=== PATIENT | female | born 1990 | race Hispanic/Latino ===

== ENCOUNTER → 2017-03-19 | Day surgery (SDC) | payer OTHER ==
--- NOTE | 2017-03-18 19:37 | History & Physical Pre-Op ---
General Information and HPI History of Present Illness: This patient is a 26-year-old 1 para 1 LMP 1 month ago who desires removal of IUD. IUD was noted to be impacted in the office setting and is admitted today for outpatient surgery for dilatation and curettage and IUD removal. Allergies/Medications Allergies: Coded Allergies: No Known Allergies (03/18/17) Home Med list Docusate Sodium 100 MG CAPSULE 100 MG PO BID PRN STOOL SOFTENER Ferrous Sulfate (Iron Supplement) 325 MG TABLET 1 TAB PO DAILY ANEMIA ( Reported) Ibuprofen 800 MG TABLET 800 MG PO Q6P PRN PAIN SCALE 4-6 Methylprednisolone. (Medrol) 4 MG TAB.DS.PK 1 DP PO AD INFLAMMATION 6 on day 1 then reduce by one tablet daily until gone Past History Surgical History Pertinent Surgical History: CLEFT PALLET REPAIR Review of Systems Review of Systems Constitutional: Reports: no symptoms. EENTM: Reports: no symptoms. Cardiovascular: Reports: no symptoms. Respiratory: Reports: no symptoms. GI: Reports: no symptoms. Genitourinary: Reports: no symptoms. Musculoskeletal: Reports: no symptoms. Skin: Reports: no symptoms. Neurological/Psychological: Reports: no symptoms. Hematologic/Endocrine: Reports: no symptoms. Immunologic/Allergic: Reports: no symptoms. All Other Systems: Reviewed and Negative Exam & Diagnostic Data Last 24 Hrs of Vital Signs/I&O Intake & Output 03/18 1600 03/18 0800 03/18 0000 Intake Total Output Total Balance Patient 132 lb Weight Physical Exam: HEENT: Normocephalic atraumatic Chest: Clear to auscultation bilaterally Cardiovascular: Normal S1, S2 Abdomen: Soft nontender no masses nondistended Pelvic: Deferred to the OR Extremities: No clubbing cyanosis or edema Neurologic: Nonfocal Assessment/Plan Assessment/Plan: Impacted IUD Plan: D&C hysteroscopy removal of impacted IUD As Ranked By This Provider Problem List: 1. Malpositioned intrauterine device (IUD)
[~2017-03-19] VITALS: Ht 157.5 cm; Wt 59.9 kg
[~2017-03-19] MED LIST: DOCUSATE SODIU100 M3 PO; IBUPROFEN800 M1 PO; IRON SUPPLEMEN325 MG PO; MEDROL4 M2 PO; PRENATAL1 TA2 PO; UNISOM25 MG PO; ZOFRAN4 M1 SL
--- NOTE | 2017-03-20 14:06 | Operative Report ---
Operative/Inv Procedure Report Surgery Date: 03/19/17 Name of Procedure: D&C hysteroscopy removal of impacted IUD Pre-Operative Diagnosis: Impacted IUD Post-Operative Diagnosis: Same Estimated Blood Loss: scant Surgeon/Civil Engineer: Jose Montemayor MD Anesthesia: moderate sedation Operative/Procedure Note Note: The patient was brought to the operating room placed on the OR table in the dorsal supine position. She was given adequate anesthesia and repositioned in a modified dorsal lithotomy. She was prepped and draped in usual sterile fashion. A weighted speculum was inserted and to the vagina with help of a Nohemi retractor single-tooth tenaculum was attached to the anterior lip of the cervix. Cervix was injected with 1% lidocaine and epinephrine in each quadrant to have cc. An endocervical curettage is performed. The uterus is then sounded and the IUD was palpable. The cervix was dilated to accommodate the hysteroscope hysteroscope was placed into the endocervical canal and the saline was activated. The hysteroscope was advanced to the uterus and the IUD was noted to be twisted and its position with the strings retracted and coiled. The hysteroscope was then removed and the cervix was further dilated. Polyp forceps were used to insert grasp the IUD and removed intact. This was sent to pathology. An endometrial curettage was then performed. At the end of the procedure the instruments removed patient was awakened and sent to recovery in good condition. All needle, sponge, and instrument counts were correct at the end of procedure 2.
== END ==
LOC: STS 04:24
DX: T83.32XA Displacement of intrauterine contraceptive device, initial encounter (principal); N71.9 Inflammatory disease of uterus, unspecified; F17.200 Nicotine dependence, unspecified, uncomplicated
CPT/HCPCS: 81025; J2250

== ENCOUNTER 2017-07-14 15:17 | Emergency (ER) | payer OTHER ==
[~2017-07-14] VITALS: Ht 157.5 cm; Wt 59.9 kg
--- NOTE | 2017-07-14 16:03 | ED GI/GU/ABDOMINAL COMPLAINT ---
History of Present Illness General Chief Complaint: Female Urogenital Problems Stated Complaint: 8 WEEKS PREG, BLEEDING Source: patient Exam Limitations: no limitations Vital Signs & Intake/Output Vital Signs & Intake/Output Vital Signs Date Time Temp Pulse Resp B/P B/P Pulse O2 O2 Flow FiO2 Mean Ox Delivery Rate 07/14 1823 98.5 88 18 124/68 98 Room Air Room Air 07/14 1643 98.7 82 18 113/64 99 Room Air 07/14 1521 98.0 116 20 134/74 98 Room Air Allergies Coded Allergies: No Known Allergies (03/18/17) Reconcile Medications Docusate Sodium 100 MG CAPSULE 100 MG PO BID PRN STOOL SOFTENER Ferrous Sulfate (Iron Supplement) 325 MG TABLET 1 TAB PO DAILY ANEMIA ( Reported) Ibuprofen 800 MG TABLET 800 MG PO Q6P PRN PAIN SCALE 4-6 Methylprednisolone. (Medrol) 4 MG TAB.DS.PK 1 DP PO AD INFLAMMATION 6 on day 1 then reduce by one tablet daily until gone Triage Note: PT TO ED C/O VAGINAL BLEEDING X 40 MINS. PT IS ABOUT 8 WEEKS , HAS NOT SEEN OBGYN. . YET. OBGYN IS DR GARCIA. . SPOKE WITH CBC, OK TO KEEP PT IN ED. Triage Nurses Notes Reviewed? yes ? y Is pt currently ? No Onset: Abrupt Duration: better Timing: single episode today Quality/Severity: sharpness, stabbing Severity Numbers: 8 Location: suprapubic Radiation: no radiation Activities at Onset: none Prior Abdominal Problems: none No Modifying Factors: none Associated Symptoms: denies HPI: 27-year-old female presents to the ER for evaluation status post developing bright red vaginal bleeding and suprapubic abdominal pain 8 out of 10 sharp stabbing intermittent in nature and nonradiating for the past one hour. She believes she is approximately 8 weeks she was called earlier today by her ict managers Dr. scott was informed she is . She believes her last menstrual cycle was June 07. The bleeding started after she had spoken to them. She denies recent trauma no nausea or vomiting urinary urgency frequency and dysuria hematuria. No recent intercourse. She denies history of similar symptoms in her previous pregnancies. No history of abdominal surgeries in the past no fever or chills or back pain she is not taking anything for her symptoms. No pain at this time. when she urinated prior to my eval, she reports blood only present with wiping now. no dizziness/ lightheadedness (Geovanni Gunter) Past History Travel History Traveled to [place] past 21 day No Medical History Any Pertinent Medical History? none Surgical History Surgical History: CLEFT PALLET REPAIR Psychosocial History What is your primary language Sudanese Tobacco Use: Quit <30 days ago ETOH Use: denies use Illicit Drug Use: denies illicit drug use Family History Hx Contributory? No (Geovanni Gunter) Review of Systems Review of Systems Constitutional: Reports: see HPI. Comments Review of systems: See HPI, All other systems negative. Constitutional, no chills no fever, HEENT: no sore throat no congestion Cardiovascular: No chest pain , Skin: no rashes, no change in skin Respiratory: No dyspnea no cough no sputum GI: No nausea no vomiting, no diarrhea : No dysuria No hematuria, no frequency Muscle skeletal: No joint pain, no back pain Neurologic: , no headache Heme/endocrine: No bruising Immunology: No lymphadenopathy (Geovanni Gunter) Physical Exam Physical Exam General Appearance: well developed/nourished, alert, awake Gastrointestinal: soft, tenderness Comments: Well-developed well-nourished person in no acute distress HEENT: Normal EENT exam; PERRL, EOMI, HEAD is atraumatic. moist mucous membranes. Neck: Supple normal range of motion Back: Nontender, no CVA tenderness. Full range of motion Cardiovascular: Regular rate and rhythms no murmur Respiratory: Chest nontender.There were no bony deformities, no asymmetry. No respiratory distress. Patient speaking in full complete sentences. Breath sounds clear to auscultation bilaterally: NO W/R/R Abdomen: Soft, suprapubic tenderness to palpation nondistended, no appreciable organomegaly. Normal bowel sounds. No rebound/guarding Extremity: No edema, full range of motion of extremities Neuro: Alert oriented x3, motor sensory normal, There were no obvious focal neurologic abnormalities. Skin: No appreciable rash on exposed skin, skin is warm and dry. Psych: Mood and affect is normal, memory and judgment is normal. Core Measures ACS in differential dx? No Sepsis Present: No Sepsis Focused Exam Completed? No (Geovanni Gunter) Progress Differential Diagnosis: ectopic , intrauterine , threatened AB , UTI/pyelo Plan of Care: Orders Procedure Date/time Status URINALYSIS 07/14 1517 Complete HUMAN BETA HCG TITRE 07/14 1517 Complete COMPREHENSIVE METABOLIC PANEL 07/14 1517 Complete CBC WITHOUT DIFFERENTIAL 07/14 1517 Complete RHOGAM WORK-UP 07/14 1517 Complete Laboratory Tests 07/14/17 1613: Urinalysis LIGHT H, Urine Color YEL, Urine Clarity CLEAR, Urine pH 7.0, Ur Specific [place] 1.010, Urine Protein NEG, Urine Ketones NEG, Urine Nitrite NEG, Urine Bilirubin NEG, Urine Urobilinogen 0.2, Ur Leukocyte Esterase NEG, Ur Microscopic SEDIMENT EXAMINED, Urine RBC 1-3, Urine WBC 1-3 H, Ur Epithelial Cells MOD H, Urine Hemoglobin LARGE H, Urine Glucose NEG 07/14/17 1600: Anion Gap 13, Estimated GFR > 60, BUN/Creatinine Ratio 20.0, Glucose 90, Calcium 10.1, Total Bilirubin 0.7, AST 21, ALT 23, Alkaline Phosphatase 44, Total Protein 8.6 H, Albumin 5.3 H, Globulin 3.3, Albumin/Globulin Ratio 1.6, Beta HCG, Quant 9506.6, CBC w Diff NO MAN DIFF REQ, RBC 4.58, MCV 89.9, MCH 30.0, MCHC 33.3, RDW 12.7, MPV 9.4, Gran % 66.9, Lymphocytes % 26.8, Monocytes % 5.4, Eosinophils % 0.7, Basophils % 0.2, Absolute Granulocytes 7.5 H, Absolute Lymphocytes 3.0, Absolute Monocytes 0.6, Absolute Eosinophils 0.1, Absolute Basophils 0 Labs ordered patient is declining anything for pain stating she has not at this time ultrasound ordered Discussed with Dr. Elmore the patient's labs and ultrasound findings. I discussed with him plan of care which she is in agreement with the patient will follow-up with [facility] tomorrow. At a long discussion with the patient regarding her ultrasound and lab work I answered all of her questions she again denies pain. Return precautions were discussed at length she feels comfortable plan and discharge at this time Diagnostic Imaging: Viewed by Me: Ultrasound. Discussed w/RAD: Ultrasound. Radiology Impression: PATIENT: MIGNON CARRION PRESENT AGE: 27 PATIENT ACCOUNT NO: [id number] : 91 LOCATION: [facility] ORDERING PHYSICIAN: Geovanni PARIKH SERVICE DATE: 07/14/17 EXAM TYPE: US - US TRANSVAG EXAMINATION: US TRANSVAGINAL CLINICAL INFORMATION: 27-year-old female. Abdominal pain and bleeding. Evaluate for ectopic . COMPARISON: Pelvic ultrasound of 12/22/2014 TECHNIQUE: Sonographic imaging of the pelvis was performed using transabdominal and transvaginal transducers. FINDINGS: Uterus/cervix: The anteflexed uterus measures approximately 10 cm long, 6 cm AP and 7.5 cm transverse. Within the endometrial cavity, there is a gestational sac. The gestational sac is slightly compressed by an area of subchorionic hemorrhage measuring approximately 3.3 x 1 x 3.5 cm. The gestational sac has a mean diameter of 1 cm, corresponding to an estimated gestational age of 5 weeks, 5 days. A 0.2 cm yolk sac is identified within the gestational sac. There is no visible pole. The cervical canal is normal and measures 3 cm in length. Ovary/adnexa: The ovaries are normal. The right ovary measures 2.9 x 2.2 x 1.7 cm. The left ovary measures 3.7 x 2.7 x 2.4 cm. There is a corpus luteum cyst of the left ovary. Color Doppler images with spectral waveforms show presence of normal arterial and venous flow within both ovaries. Cul-de-sac: No free fluid. IMPRESSION: 1. No evidence of ectopic patency. 2. An intrauterine gestation is present. The estimated gestational age is 5 weeks, 5 days. The gestational sac is slightly compressed by the surrounding subchorionic hemorrhage. Although a yolk sac is observed within the gestational sac, a pole is not identified. Consider correlation with quantitative beta hCG levels. Clinical follow-up is recommended to determine whether this evolves into a viable . DICTATED BY: Bryant Christiansen MD DATE/TIME DICTATED:07/14/171744 APPLIQUE SEWER:FRANSISCO DATE/TIME TRANSCRIBED:07/14/171744 CONFIDENTIAL, DO NOT COPY WITHOUT APPROPRIATE AUTHORIZATION. <Electronically signed in Other Vendor System> SIGNED BY: Bryant Christiansen MD 07/14/17 0907 Initial ED EKG: none (Yariel PARIKH,Geovanni) Departure Departure Time of Disposition: 1807 Disposition: HOME OR SELF CARE Condition: Stable Clinical Impression Primary Impression: Threatened miscarriage Referrals: Patient Has No Primary Care Dr (PCP/Family) Jose Montemayor MD Additional Instructions: Follow up with [facility] worker dr scott tomorrow. tylenol if needed for pain. Pelvic rest. return at anytime sooner with any concerns. Departure Forms: Customer Survey General Discharge Information (Yariel PARIKH,Geovanni) PA/BUNDLE SHAKER Co-Sign Statement Statement: ED Attending supervision documentation- [x] I saw and evaluated the patient. I have also reviewed all the pertinent lab results and diagnostic results. I agree with the findings and the plan of care as documented in the PA's/BUNDLE SHAKER's documentation. [] I have reviewed the ED Record and agree with the PA's/BUNDLE SHAKER's documentation. [] Additions or exceptions (if any) to the PAs/BUNDLE SHAKER's note and plan are summarized below: [] (Catarina OLIVO,Herminio Stafford)
[2017-07-14 16:20] LABS: ABSOLUTE BASOPHIL COUNT 0 /CUMM (0.0-0.2); ABSOLUTE EOSINOPHIL COUNT 0.1 /CUMM (0.0-0.7); ABSOLUTE GRANULOCYTE CT 7.5 /CUMM (1.4-6.5); ABSOLUTE MONOCYTE COUNT 0.6 /CUMM (0.10-0.60); BASOPHIL % 0.2 % (0.0-2.0); EOSINOPHIL % 0.7 % (0-5); GRANULOCYTE % 66.9 % (42.2-75.2); HEMATOCRIT 41.2 % (37-47); MEAN CORPUSCULAR HGB CONC 33.3 G/DL (33.0-37.0); MEAN CORPUSCULAR VOLUME 89.9 FL (81.0-99.0); MEAN PLATELET VOLUME 9.4 FL (7.4-10.4); PLATELET COUNT 208 /CUMM (130-400); RBC DISTRIBUTION WIDTH 12.7 % (11.5-14.5); RED BLOOD CELL CT 4.58 /CUMM (4.20-5.40); WHITE BLOOD CELL COUNT 11.2 /CUMM (4.8-10.8)
--- NOTE | 2017-07-14 17:59 | ULTRASOUND REPORT ---
EXAMINATION: US TRANSVAGINAL CLINICAL INFORMATION: 27-year-old female. Abdominal pain and bleeding. Evaluate for ectopic . COMPARISON: Pelvic ultrasound of 12/22/2014 TECHNIQUE: Sonographic imaging of the pelvis was performed using transabdominal and transvaginal transducers. FINDINGS: Uterus/cervix: The anteflexed uterus measures approximately 10 cm long, 6 cm AP and 7.5 cm transverse. Within the endometrial cavity, there is a gestational sac. The gestational sac is slightly compressed by an area of subchorionic hemorrhage measuring approximately 3.3 x 1 x 3.5 cm. The gestational sac has a mean diameter of 1 cm, corresponding to an estimated gestational age of 5 weeks, 5 days. A 0.2 cm yolk sac is identified within the gestational sac. There is no visible pole. The cervical canal is normal and measures 3 cm in length. Ovary/adnexa: The ovaries are normal. The right ovary measures 2.9 x 2.2 x 1.7 cm. The left ovary measures 3.7 x 2.7 x 2.4 cm. There is a corpus luteum cyst of the left ovary. Color Doppler images with spectral waveforms show presence of normal arterial and venous flow within both ovaries. Cul-de-sac: No free fluid. IMPRESSION: 1. No evidence of ectopic patency. 2. An intrauterine gestation is present. The estimated gestational age is 5 weeks, 5 days. The gestational sac is slightly compressed by the surrounding subchorionic hemorrhage. Although a yolk sac is observed within the gestational sac, a pole is not identified. Consider correlation with quantitative beta hCG levels. Clinical follow-up is recommended to determine whether this evolves into a viable .
[2017-07-14 18:23] VITALS: BP 124/68
== END 2017-07-14 18:24 ==
LOC: ERH 15:17
PROVIDERS: Physician Assistant Medical
DX: O20.0 Threatened abortion (principal)
CPT/HCPCS: 76817; 81001